=== PATIENT | female | born 1970 | race Caucasian/White ===

== ENCOUNTER → 2018-09-11 | Outpatient (CLI) | payer BC ==
--- NOTE | 2018-09-11 14:36 | KCIC ---
Bilateral digital screening mammograms with 3-D tomosynthesis: Reason for examination: Routine screening. New baseline. Bilateral mammograms in CC and oblique projections were obtained with 2-D imaging and 3-D tomosynthesis imaging on a Siemens Inspiration unit and reviewed on the workstation. Interpretation was made with the benefit of CAD. The skin shows lesions consistent with a sebaceous cyst at the 9:00 B and 7:00 B positions of the right breast. The nipples show no abnormalities. No abnormal axillary lymph nodes are seen. The breast parenchyma shows scattered fatty and fibroglandular density. (Breast density: Category B.) There are no dominant masses, suspicious calcifications or architectural distortion. Impression: No evidence of malignancy. Recommend routine screening. BI-RAD Category 2: Benign. "Our facility is accredited by the [employer] Mammography [employer]." This patient's information has been entered into a reminder system for the patient to be notified with the results of her examination and a target date for the next mammogram. Electronically signed by: Bridgett Phillips MD (09/11/2018 2:30 PM) [facility]
== END | disposition home or self-care (01) ==
LOC: KCIC MAMMO 12:52
PROVIDERS: ATTEND Family Medicine
DX: Z12.31 Encounter for screening mammogram for malignant neoplasm of breast (principal)
CPT/HCPCS: 77063; 77067

== ENCOUNTER 2019-01-05 10:03 | Emergency (ER) | payer BC ==
[~2019-01-05] VITALS: Ht 167.6 cm; Wt 72.6 kg
[2019-01-05 10:29] VITALS: BP 153/87
--- NOTE | 2019-01-05 11:04 | RAD ---
EXAM: 3 views right foot DATE: 01/05/2019 10:38 AM INDICATION: Right foot pain after hitting toes on doorway. Continued swelling and bruising. COMPARISON: No Prior FINDINGS: No evidence of acute fracture or dislocation. Joint spaces are preserved without significant degenerative/proliferative change. Mild forefoot soft tissue swelling. IMPRESSION: No discrete fracture or dislocation. Electronically signed by: Zaheer Barfield MD (01/05/2019 11:01 AM) [facility]
--- NOTE | 2019-01-05 11:31 | PHYS DOC ---
Past Medical History Past Medical History: No Pertinent History (GEOVANNI MANZANARES APRN) Past Surgical History: No Surgical History (GEOVANNI MANZANARES APRN) Alcohol Use: Occasionally Drug Use: None (GEOVANNI MANZANARES APRN) Adult General Chief Complaint Chief Complaint: FOOT INJURY PAIN [facility] HPI Patient is a 48 year old female who presents with bruising to her great toe and second and third toes extending down into her second and third metatarsal after she hit her bed when she got up to go to the bathroom in the middle of the night. She states that she has had worsening of the bruising and is continuing to have pain. She did use Band-Aids and dania tape the toes together. (GEOVANNI MANZANARES APRN) Review of Systems Review of Systems Constitutional: Denies fever or chills [] Respiratory: Denies cough or shortness of breath [] Cardiovascular: No additional information not addressed in HPI [] GI: Denies abdominal pain, nausea, vomiting, bloody stools or diarrhea [] : Denies dysuria or hematuria [] Musculoskeletal: See history of present illness Integument: Denies rash or skin lesions [] Neurologic: Denies headache, focal weakness or sensory changes [] Endocrine: Denies polyuria or polydipsia [] All other systems were reviewed and found to be within normal limits, except as documented in this note. (GEOVANNI MANZANARES APRN) Physical Exam Physical Exam Constitutional: Well developed, well nourished, no acute distress, non-toxic appearance. [] Cardiovascular:Heart rate regular rhythm, no murmur [] Lungs & Thorax: Bilateral breath sounds clear to auscultation [] Abdomen: Bowel sounds normal, soft, no tenderness, no masses, no pulsatile masses. [] Skin: Warm, dry, no erythema, no rash. [] Back: No tenderness, no CVA tenderness. [] Extremities: tenderness to her right first 3 toes on the right foot with ecchymosis noted extending into the metacarpals, no cyanosis, no clubbing, ROM intact, no edema. [] Neurologic: Alert and oriented X 3, normal motor function, normal sensory function, no focal deficits noted. [] Psychologic: Affect normal, judgement normal, mood normal. [] (GEOVANNI MANZANARES APRN) Current Patient Data Vital Signs Vital Signs Date Time Temp Pulse Resp B/P (MAP) Pulse Ox O2 Delivery O2 Flow Rate FiO2 01/05/19 10:29 98.1 60 16 153/87 (109) 97 Room Air 98.1 (JANE PETTIT MD) EKG EKG [] (GEOVANNI MANZANARES APRN) Radiology/Procedures Radiology/Procedures [] PATIENT: VINCENT CARRERA ACCOUNT: [id number] : 1970 LOCATION: ER AGE: 48 SEX: F EXAM STATUS: REG ER ORD. PHYSICIAN: GEOVANNI MANZANARES APRN REASON: hit toes on doorway, ecchymosis and continued pain rt 2-3 metatarsals PROCEDURE: FOOT RIGHT 3V EXAM: 3 views right foot DATE: 01/05/2019 10:38 AM INDICATION: Right foot pain after hitting toes on doorway. Continued swelling and bruising. COMPARISON: No Prior FINDINGS: No evidence of acute fracture or dislocation. Joint spaces are preserved without significant degenerative/proliferative change. Mild forefoot soft tissue swelling. IMPRESSION: No discrete fracture or dislocation. Electronically signed by: Zaheer Carnes MD (01/05/2019 11:01 AM) [facility] DICTATED and SIGNED BY: ZAHEER CARNES MD DATE: 01/05/19 1101 (GEOVANNI MANZANARES APRN) Course & Med Decision Making Course & Med Decision Making Pertinent Labs and Imaging studies reviewed. (See chart for details) []The patient was placed in a postop shoe for comfort. (GEOVANNI MANZANARES APRN) Course & Med Decision Making Staff Physician Addendum: I was working in the ER during the course of this patient's visit. I was available for consultation as needed, but I was not directly involved in the care of this patient. (JANE PETTIT MD) Dragon Disclaimer Dragon Disclaimer This electronic medical record was generated, in whole or in part, using a voice recognition dictation system. (GEOVANNI MANZANARES APRN) Departure Departure Impression: Primary Impression: Foot contusion Disposition: 01 HOME, SELF-CARE Condition: STABLE Referrals: JERONIMO MARCELINO (PCP) JOHN VIVAS [facility] Patient Instructions: Foot Contusion Additional Instructions: There was no fracture found on x-ray today. You may take ibuprofen or Tylenol for pain. The bruising will gradually dissipate. Follow-up with your PCP in one week if not improving or you may follow-up with podiatry. GEOVANNI MANZANARES APRN January 05, 2019 11:31 JANE PETTIT MD January 06, 2019 18:43
== END 2019-01-05 11:56 | disposition home or self-care (01) ==
LOC: ER 10:03
DX: S90.111A Contusion of right great toe without damage to nail, initial encounter (principal); S90.121A Contusion of right lesser toe(s) without damage to nail, initial encounter; W22.8XXA Striking against or struck by other objects, initial encounter; Y93.89 Activity, other specified; Y92.89 Other specified places as the place of occurrence of the external cause; Y99.8 Other external cause status
CPT/HCPCS: 73630; 99284